=== PATIENT | female | born 1990 | race Caucasian/White ===

== ENCOUNTER 2017-06-20 13:30 | Emergency (ER) | payer MEDICAID ==
[~2017-06-20] VITALS: Ht 152.4 cm; Wt 48.6 kg
[2017-06-20 13:56] VITALS: BP 140/70
--- NOTE | 2017-06-20 14:03 | NUR ---
PT AMBULATES TO OF4, DR BENITEZ NOTIFIED
--- NOTE | 2017-06-20 14:12 | NUR ---
PATIENT PRESENTS TO ED WITH ELVIS HANDS SWELLING, STIFFNESS, REDNESS X 1 MONTH . PT STATES . DENIES N/V/D; SKIN IS PINK/WARM/DRY; AAOX4 WITH EVEN AND STEADY GAIT; LUNGS CLEAR BL; HR EVEN AND REGULAR; PT DENIES ANY FEVER, CP, SOB, OR COUGH AT THIS TIME; PATIENT STATES PAIN OF 09 AT THIS TIME; VSS; PATIENT POSITIONED FOR COMFORT; HOB ELEVATED; BEDRAILS UP X2; BED DOWN. ER MD MADE AWARE OF PT STATUS.
--- NOTE | 2017-06-20 14:19 | NUR ---
LAB COLLECTING BLOOD SAMPLE
[2017-06-20 14:27] LABS: BASOPHILS # (AUTO) 0.3 K/uL (0.00-0.22); EOSINOPHILS # (AUTO) 0.1 K/uL (0-0.4); HEMATOCRIT 38.3 % (36-48); HEMOGLOBIN 12.8 g/dL (12.0-16.0); LYMPHOCYTES # (AUTO) 1.9 K/uL (2.5-16.5); MEAN CORPUSCULAR HEMOGLOBIN 31 pg (27-31); MEAN CORPUSCULAR HGB CONC 33 g/dL (33-37); MEAN CORPUSCULAR VOLUME 91 fL (80-94); MONOCYTES # (AUTO) 0.5 K/uL (0.8-1.0); NEUTROPHILS # (AUTO) 2.6 K/uL (1.8-7.7); PLATELET COUNT (AUTO) 248 K/uL (140-450); RED CELL DISTRIBUTION WIDTH 12.3 % (11.6-13.7); WHITE BLOOD COUNT (AUTO) 5.4 K/uL (4.8-10.8)
[2017-06-20 14:35] LABS: APPEARANCE,URINE HAZY (CLEAR); BILIRUBIN,URINE NEGATIVE (NEGATIVE); BLOOD, URINE NEGATIVE (NEGATIVE); COLOR,URINE YELLOW (YELLOW); LEUKOCYTE ESTERASE ,URINE NEGATIVE (NEGATIVE); NITRITE, URINE POSITIVE (NEGATIVE); UGLUCOSE NEGATIVE (NEGATIVE)
[2017-06-20 14:40] LABS: ANION GAP 13.2 (8-16); CARBON DIOXIDE 23.4 mmol/L (21-32); CREATININE 0.9 mg/dL (0.6-1.3); POTASSIUM 3.6 mmol/L (3.5-5.1)
[2017-06-20 14:44] LABS: RBC,URINE NONE SEEN /HPF (0-5); WBC,URINE 0-5 (RARE) /HPF (0-5)
[2017-06-20 14:45] LABS: ALBUMIN 3.6 g/dL (3.4-5.0); TOTAL BILIRUBIN 0.4 mg/dL (0.0-1.0)
--- NOTE | 2017-06-20 15:04 | NUR ---
SITTING UPRIGHT IN CHAIR--CONTINUES TO WAIT FOR LAB RESULTS
--- NOTE | 2017-06-20 15:54 | NUR ---
dr. smith assessing patient in of
[2017-06-20] MEDS: CIPROFLOXACIN 250 MG TAB PO ONE (16:28)
[2017-06-20] MEDS: KETOROLAC 15 MG/ML VIAL IM ONE (16:28)
--- NOTE | 2017-06-20 17:05 | NUR ---
PENDING DC ORDER IN BUT NO DC PAPERWORK HAS BEEN COMPLETED OF YET--MD HORTON
[2017-06-20 17:44] VITALS: BP 119/73
== END 2017-06-20 17:43 | disposition home or self-care (01) ==
LOC: MED 13:30
DX: M65.4 Radial styloid tenosynovitis [de Quervain] (principal); N39.0 Urinary tract infection, site not specified
CPT/HCPCS: 36415; 80053; 81001; 81025; 85025; 87086; 96372; 99284; J1885

== ENCOUNTER 2019-05-16 12:01 | Emergency (ER) | payer SELFPAY ==
[~2019-05-16] VITALS: Ht 152.4 cm; Wt 55.8 kg
[2019-05-16 12:12] VITALS: BP 113/56
--- NOTE | 2019-05-16 12:15 | NUR ---
PT SENT TO ER LOBBY TO WAIT FOR AVAILABLE BED.
--- NOTE | 2019-05-16 12:32 | NUR ---
PATIENT AMBULATED TO BED 5.
--- NOTE | 2019-05-16 12:46 | NUR ---
PT PRESENTS TO THE ED WITH C/O L WRIST PAIN X 2 WEEKS. PT STATES THAT PAIN IS 7/10 AT THIS TIME AND THAT HER WRIST FEELS SORE. PT STATES THAT IT HURTS TO MOVE HER THUMB. PT REPORTS TAKING TYLENOL 500MG LAST NIGHT. PT STATES THAT SHE WAS DIAGNOSED 2 YEARS AGO WITH TENDONITIS AND SINCE SHE IS CARRYING HER BABY THE PAIN HAS BEGAN TO COME BACK. PTS SKIN IS PINK, WARM, AND DRY AND NO DEFORMITIES NOTED. PT PRESENTS WITH A CLEAR SPEECH AND IS CONVERSING APPROPRIATELY. PT POSITIONED FOR COMFORT. HOB ELEVATED. ER MD AWARE OF PT STATUS. LILI HX: TENDONITIS RX: DENIES
--- NOTE | 2019-05-16 12:54 | NUR ---
PLACED VELCRO COLLES ON LEFT WRIST OF PT
[2019-05-16 13:02] VITALS: BP 113/56
== END 2019-05-16 13:01 | disposition home or self-care (01) ==
LOC: MED 12:01
DX: M65.4 Radial styloid tenosynovitis [de Quervain] (principal)
CPT/HCPCS: 99283

== ENCOUNTER 2020-09-03 22:36 | Emergency (ER) | payer MEDICAID ==
[~2020-09-03] VITALS: Ht 152.4 cm; Wt 53.1 kg
[2020-09-03 22:42] VITALS: BP 110/71
--- NOTE | 2020-09-03 22:42 | NUR ---
to bed ambulatory
--- NOTE | 2020-09-03 22:55 | NUR ---
29 Y/O F BIB SELF FROM HOME, PATIENT PRESENTS TO ED WITH ABD AND NECK PAIN THAT STARTED 3 DAYS AGO 08/31/20. PT STATES NECK PAIN IS 9/10, DOES NOT RADIATE, QUALITY PRESSURE, ACCOMPANIED WITH NAUSEA AND VOMITING. PT STATED NO DIARRHEA, CONSTIPATION, BUT THE NAUSEA STARTED TODAY 1800, 6 EMESIS EPISODES. SKIN IS PINK/WARM/DRY; AAOX4 WITH EVEN AND STEADY GAIT; LUNGS CLEAR BL; HR EVEN AND REGULAR; PT DENIES ANY FEVER, CP, SOB, OR COUGH AT THIS TIME; VSS; PATIENT POSITIONED FOR COMFORT; HOB ELEVATED; BEDRAILS UP X2; BED DOWN. ER MD MADE AWARE OF PT STATUS. NKA. NO PMH. LMP: 08/26/20.
[2020-09-03] MEDS ORDERED: KETOROLAC 60 MG/2 ML VIAL IM ONE (23:00)
[2020-09-03] MEDS ORDERED: ONDANSETRON 4 MG TAB PO ONE (23:10)
--- NOTE | 2020-09-03 23:21 | NUR ---
URINE WAS GIVEN TO LAB FOR UA.
[2020-09-03 23:31] LABS: APPEARANCE,URINE CLEAR (CLEAR); BILIRUBIN,URINE NEGATIVE (NEGATIVE); BLOOD, URINE NEGATIVE (NEGATIVE); COLOR,URINE YELLOW (YELLOW); LEUKOCYTE ESTERASE ,URINE 1+ (NEGATIVE); NITRITE, URINE NEGATIVE (NEGATIVE); UGLUCOSE NEGATIVE (NEGATIVE)
[2020-09-03 23:54] LABS: RBC,URINE 0-5 /HPF (0-5)
[2020-09-03 23:55] LABS: URINE AMORPHOUS URATE 1+ /HPF (None Seen)
[2020-09-04] MEDS ORDERED: MORPHINE SULFATE 4 MG/ML SYR IVP ONE
[2020-09-04] MEDS ORDERED: ONDANSETRON 4 MG/2 ML VIAL IVP ONE
[2020-09-04] MEDS ORDERED: NACL 0.9% 1,000 ML IV ONE
[2020-09-04] MEDS ORDERED: cefTRIAXone 1,000 MG VIAL ONE (00:15)
[2020-09-04 00:32] LABS: BASOPHILS % (AUTO) 0.1 % (0.0-2.0); EOSINOPHILS % (AUTO) 0.1 % (0.0-4.0); HEMATOCRIT 40.1 % (36-48); HEMOGLOBIN 13.7 g/dL (12.0-16.0); LYMPHOCYTES # (AUTO) 0.6 K/uL (2.5-16.5); LYMPHOCYTES % (AUTO) 4.2 % (20.5-51.1); MEAN CORPUSCULAR HEMOGLOBIN 31 pg (27-31); MEAN CORPUSCULAR HGB CONC 34 g/dL (33-37); MEAN CORPUSCULAR VOLUME 89.5 fL (80-94); MONOCYTES # (AUTO) 0.5 K/uL (0.8-1.0); MONOCYTES % (AUTO) 3.5 % (1.7-9.3); NEUTROPHILS # (AUTO) 12.8 K/uL (1.8-7.7); NEUTROPHILS % (AUTO) 92.1 % (42.2-75.2); PLATELET COUNT (AUTO) 233 K/uL (140-450); RED BLOOD CELL COUNT(AUTO) 4.48 MIL/uL (4.20-5.40); WHITE BLOOD COUNT (AUTO) 13.9 K/uL (4.8-10.8)
[2020-09-04 00:39] LABS: CARBON DIOXIDE 23.8 mmol/L (21-32); CREATININE 0.9 mg/dL (0.6-1.3); POTASSIUM 3.8 mmol/L (3.5-5.1); TOTAL BILIRUBIN 0.4 mg/dL (0.0-1.0)
[2020-09-04] MEDS ORDERED: diphenhydrAMINE 50 MG/ML VIAL IVP ONE (00:55)
--- NOTE | 2020-09-04 00:57 | NUR ---
CHECKED ON MED REACTION FOR PT. PT HAS VISIBLE SWELLING AND REDNESS ON IV SITE. PT STATES SHE IS FEELING EXTREMELY ITCHY ON THE ARM. ERMD NOTIFIED. PT STILL WANTS TO CONTINUE ANTIBIOTIC AND GIVE BENADRYL.
[2020-09-04] MEDS ORDERED: ONDA4TAB PO (01:19)
[2020-09-04] MEDS ORDERED: NITR100C7 PO (01:19)
--- NOTE | 2020-09-04 01:30 | NUR ---
SWELLING HAS GONE DOWN, PT WAS ABLE TO FINISH ANTIBIOTIC. PT STATES SHE WILL BE HAVING SPOUSE COMING TO PICK HER UP FOR DISCHARGE. PT WAITING IN ROOM COMFORTABLY, IV REMOVED, WRIST BAND REMOVED, DISCHARGE PAPERWORK SIGNED, AFTERCARE INSTRUCTIONS GIVEN.
[2020-09-04 01:32] VITALS: BP 110/71
--- NOTE | 2020-09-04 01:32 | NUR ---
Patient discharged with v/s stable. Written and verbal after care instructions given and explained. Patient alert, oriented and verbalized understanding of instructions. Ambulatory with steady gait. All questions addressed prior to discharge. ID band removed. Patient advised to follow up with PMD. Rx of MACROBID, ZOFRAN given. Patient educated on indication of medication including possible reaction and side effects. Opportunity to ask questions provided and answered.
== END 2020-09-04 01:32 | disposition home or self-care (01) ==
LOC: MED 22:36
DX: N39.0 Urinary tract infection, site not specified (principal); Z88.1 Allergy status to other antibiotic agents
CPT/HCPCS: 36415; 80053; 81001; 81025; 85025; 87040; 87086; 96365; 96372; 96375; 99285; J0696; J1200; J1885; J2270; J2405; J7060; Q0162

== ENCOUNTER 2021-01-26 20:27 | Emergency (ER) | payer MEDICAID ==
[~2021-01-26] VITALS: Ht 152.4 cm; Wt 54.4 kg
[~2021-01-26 20:27] MED LIST: NITR100C7 PO; ONDA4TAB PO
[2021-01-26 20:40] VITALS: BP 125/88
--- NOTE | 2021-01-26 20:43 | NUR ---
TO LOBBY A/W BED AMBULATORY
--- NOTE | 2021-01-26 21:35 | NUR ---
AMBULATORY TO BED
--- NOTE | 2021-01-26 21:38 | NUR ---
30 Y/O C/O LOWER ABD PAIN, SINCE THURSDAY. RADIATING TO LOWER BACK. TENDER TO TOUCH. PT STATES 9/10 BURNING PAIN. MEDHX: DENIES ALLERGIES: CEFTRIAXONE
--- NOTE | 2021-01-26 21:56 | NUR ---
DR REAGAN AT BEDSIDE EXAMINING PT
[2021-01-26] MEDS ORDERED: KETOROLAC 30 MG/ML VIAL IM ONE (22:05)
--- NOTE | 2021-01-26 22:12 | NUR ---
LAB AT BEDSIDE
[2021-01-26 22:26] LABS: BASOPHILS % (AUTO) 0.4 % (0.0-2.0); EOSINOPHILS # (AUTO) 0.1 K/uL (0-0.4); EOSINOPHILS % (AUTO) 1.1 % (0.0-4.0); HEMATOCRIT 38.5 % (36-48); LYMPHOCYTES # (AUTO) 3.1 K/uL (2.5-16.5); LYMPHOCYTES % (AUTO) 40.1 % (20.5-51.1); MEAN CORPUSCULAR HEMOGLOBIN 31 pg (27-31); MEAN CORPUSCULAR HGB CONC 34 g/dL (33-37); MEAN CORPUSCULAR VOLUME 92.5 fL (80-94); MONOCYTES # (AUTO) 0.6 K/uL (0.8-1.0); MONOCYTES % (AUTO) 7.9 % (1.7-9.3); NEUTROPHILS # (AUTO) 3.9 K/uL (1.8-7.7); NEUTROPHILS % (AUTO) 50.5 % (42.2-75.2); PLATELET COUNT (AUTO) 253 K/uL (140-450); RED BLOOD CELL COUNT(AUTO) 4.16 MIL/uL (4.20-5.40); RED CELL DISTRIBUTION WIDTH 13.2 % (11.6-13.7); WHITE BLOOD COUNT (AUTO) 7.8 K/uL (4.8-10.8)
--- NOTE | 2021-01-26 22:29 | NUR ---
PT TAKEN TO CT SCAN VIA ESTEBAN
[2021-01-26 22:37] LABS: APPEARANCE,URINE CLOUDY (CLEAR); BILIRUBIN,URINE NEGATIVE (NEGATIVE); BLOOD, URINE NEGATIVE (NEGATIVE); COLOR,URINE YELLOW (YELLOW); LEUKOCYTE ESTERASE ,URINE 1+ (NEGATIVE); NITRITE, URINE NEGATIVE (NEGATIVE); UGLUCOSE NEGATIVE (NEGATIVE)
--- NOTE | 2021-01-26 22:40 | NUR ---
PT RETURNED FROM CT
[2021-01-26 22:46] LABS: ALBUMIN 3.8 g/dL (3.4-5.0); ANION GAP 12.6 (8-16); CARBON DIOXIDE 27.1 mmol/L (21-32); CREATININE 0.9 mg/dL (0.6-1.3); POTASSIUM 3.7 mmol/L (3.5-5.1); TOTAL BILIRUBIN 0.1 mg/dL (0.0-1.0)
[2021-01-26 22:55] LABS: RBC,URINE 0-5 /HPF (0-5); WBC,URINE 0-5 /HPF (0-5)
--- NOTE | 2021-01-26 23:00 | NUR ---
PT REPORTS 5/[address] REAGAN MADE AWARE
--- NOTE | 2021-01-26 23:29 | NUR ---
Pt report given to BONNIE DENA. Transfer of care at this time.
--- NOTE | 2021-01-26 23:30 | NUR ---
RECEIVED REPORT FROM DIANNE ENGLISH. ASSUMED CARE AT THIS TIME. PT REPORTS 6/[address] PAIN [address]OWER A[address] REAGAN MADE AWARE. VERBAL ORDER FOR MORPHINE 4MG IM RECEIVED AND CARRIED OUT.
[2021-01-26 23:35] VITALS: BP 128/72
[2021-01-26] MEDS ORDERED: MORPHINE SULFATE 4 MG/ML SYR IM ONE (23:40)
[2021-01-27] MEDS ORDERED: NITR100C7 PO (00:05)
[2021-01-27] MEDS ORDERED: ACET-8386 PO (00:05)
--- NOTE | 2021-01-27 00:15 | NUR ---
Patient discharged with v/s stable. Written and verbal after care instructions given and explained. Patient alert, oriented and verbalized understanding of instructions. Ambulatory with steady gait. All questions addressed prior to discharge. ID band removed. Patient advised to follow up with PMD. Rx of MACROBID AND NORCO given. Patient educated on indication of medication including possible reaction and side effects. Opportunity to ask questions provided and answered.
== END 2021-01-27 00:15 | disposition home or self-care (01) ==
LOC: MED 20:27
DX: N39.0 Urinary tract infection, site not specified (principal); Z79.899 Other long term (current) drug therapy
CPT/HCPCS: 36415; 74176; 80053; 81001; 81025; 83690; 85025; 87086; 96372; 99284; J1885; J2270

== ENCOUNTER 2021-10-29 09:53 | Emergency (ER) | payer MEDICAID ==
[~2021-10-29] VITALS: Ht 152.4 cm; Wt 56.2 kg
[~2021-10-29 09:53] MED LIST changes: +ACET-8386 PO
[2021-10-29 10:04] VITALS: BP 115/60
--- NOTE | 2021-10-29 10:07 | NUR ---
PT AMB TO BED 12.
--- NOTE | 2021-10-29 10:21 | NUR ---
DR YOO AT [facility] ASSESSING THE PT
[2021-10-29] MEDS ORDERED: LIDOCAINE MPF 1% 10 MG/ML VIAL INJ ONE (10:30)
--- NOTE | 2021-10-29 10:31 | NUR ---
C/O LOWER BACK PAIN X 1 MONTH. DENIES TRAUMA OR DYSURIA. PT STATES PAIN IS 10/10. SHE CAN BARELY MOVE AND IS UNCOMFORTABLE IN ANY POSITION. PT CURRENTLY STANDING IN ROOM IN DISCOMFORT. PT STATED HAD PROBLEM WITH SCIATIC PAIN BEFORE. PTS DAUGHTER IN ROOM WITH HER. NO PMH ALLERGIES: CEFTRIAXONE
[2021-10-29] MEDS ORDERED: ACET-8386 PO (11:37)
--- NOTE | 2021-10-29 11:44 | NUR ---
Patient discharged with v/s stable. Written and verbal after care instructions given FOR BACK PAIN AND BACK EXERCISES and explained. Patient alert, oriented and verbalized understanding of instructions. Ambulatory with steady gait. All questions addressed prior to discharge. ID band removed. Patient advised to follow up with PMD. Rx of NORCO given. Patient educated on indication of medication including possible reaction and side effects. Opportunity to ask questions provided and answered.
== END 2021-10-29 11:44 | disposition home or self-care (01) ==
LOC: MED 09:53
DX: M54.6 Pain in thoracic spine (principal); M54.50 Low back pain, unspecified; M53.3 Sacrococcygeal disorders, not elsewhere classified; Z90.49 Acquired absence of other specified parts of digestive tract; Z79.899 Other long term (current) drug therapy; Z79.891 Long term (current) use of opiate analgesic; Z79.2 Long term (current) use of antibiotics; Z88.1 Allergy status to other antibiotic agents
CPT/HCPCS: 20552; 81002; 81025; 99284; J2001

== ENCOUNTER 2022-04-04 09:08 | Emergency (ER) | payer MEDICAID ==
[~2022-04-04] VITALS: Ht 152.4 cm; Wt 58.5 kg
[2022-04-04 09:19] VITALS: BP 125/72
--- NOTE | 2022-04-04 09:35 | NUR ---
31 y/o female bib self with c/o bilateral inner thigh rash x today. Patient denies any fever, chills or SOB. Denies any new detergents, soaps or lotions. Denies any other family members having rash. Patient states she "ate new food yesterday for dinner." Medical History: Denies ALLERGY: CEFTRIAXONE
[2022-04-04] MEDS ORDERED: predniSONE 20 MG TAB PO ONE (10:15)
[2022-04-04] MEDS ORDERED: FAMOTIDINE 20 MG TAB PO ONE (10:15)
[2022-04-04] MEDS ORDERED: DIPH25TA53 PO (10:25)
[2022-04-04] MEDS ORDERED: FAMO-90 PO (10:25)
[2022-04-04] MEDS ORDERED: PRED20TA5 PO (10:25)
[2022-04-04 10:50] VITALS: BP 96/63
--- NOTE | 2022-04-04 10:50 | NUR ---
Patient discharged with v/s stable. Written and verbal after care instructions given. Patient alert, oriented and verbalized understanding of instructions. Ambulatory with steady gait. All questions addressed prior to discharge. ID band removed. Patient advised to follow up with PMD. Rx of Benadryl, Pepcid and Deltasone given. Opportunity to ask questions provided and answered.
--- NOTE | 2022-04-04 10:51 | NUR ---
The patient's care was reviewed and supervised by Layla Blackwood RN.
== END 2022-04-04 10:50 | disposition home or self-care (01) ==
LOC: MED 09:08
DX: L50.9 Urticaria, unspecified (principal); Z88.1 Allergy status to other antibiotic agents
CPT/HCPCS: 99283; J7512

== ENCOUNTER 2022-05-16 22:04 | Emergency (ER) | payer MEDICAID ==
[~2022-05-16] VITALS: Ht 152.4 cm; Wt 54.9 kg
[~2022-05-16 22:04] MED LIST changes: +DIPH25TA53 PO; +FAMO-90 PO; +PRED20TA5 PO
[2022-05-16 22:45] VITALS: BP 122/65
--- NOTE | 2022-05-16 22:48 | NUR ---
TO LOBBY A/W BED AMBULATORY
--- NOTE | 2022-05-17 00:03 | NUR ---
PT TO BED #2
--- NOTE | 2022-05-17 00:15 | NUR ---
H/A, DIFF OF BREATHING, SORETHROAT, BODYACHES FOR 4DAYS
[2022-05-17] MEDS ORDERED: DEXAMETHASONE 10 MG/ML VIAL IVP ONE (00:40)
[2022-05-17] MEDS ORDERED: diphenhydrAMINE 50 MG/ML VIAL IVP ONE (00:40)
[2022-05-17] MEDS ORDERED: KETOROLAC 15 MG/ML VIAL IVP ONE (00:40)
[2022-05-17] MEDS ORDERED: METOCLOPRAMIDE 10 MG/2 ML INJ VIAL IVP ONE (00:40)
[2022-05-17] MEDS ORDERED: guaiFENesin 20 MG/ML UDC PO ONE (00:40)
[2022-05-17] MEDS ORDERED: NACL 0.9% 1,000 ML IV ONE (00:40)
[2022-05-17] MEDS ORDERED: guaiFENesin DM 200/20 MG-10 ML 10 ML UDC ONE (01:13)
[2022-05-17 01:44] LABS: BASOPHILS % (AUTO) 0.3 % (0.0-2.0); EOSINOPHILS # (AUTO) 0.1 K/uL (0-0.4); EOSINOPHILS % (AUTO) 0.6 % (0.0-4.0); HEMOGLOBIN 12.6 g/dL (12.0-16.0); LYMPHOCYTES # (AUTO) 1.2 K/uL (2.5-16.5); LYMPHOCYTES % (AUTO) 14.5 % (20.5-51.1); MEAN CORPUSCULAR HEMOGLOBIN 31 pg (27-31); MEAN CORPUSCULAR HGB CONC 34 g/dL (33-37); MEAN CORPUSCULAR VOLUME 89.8 fL (80-94); MONOCYTES # (AUTO) 0.9 K/uL (0.8-1.0); MONOCYTES % (AUTO) 10.7 % (1.7-9.3); NEUTROPHILS # (AUTO) 6.3 K/uL (1.8-7.7); NEUTROPHILS % (AUTO) 73.9 % (42.2-75.2); PLATELET COUNT (AUTO) 211 K/uL (140-450); RED BLOOD CELL COUNT(AUTO) 4.12 MIL/uL (4.20-5.40); RED CELL DISTRIBUTION WIDTH 13.3 % (11.6-13.7); WHITE BLOOD COUNT (AUTO) 8.5 K/uL (4.8-10.8)
[2022-05-17 01:45] LABS: ALBUMIN 3.1 g/dL (3.4-5.0); ANION GAP 13.1 (8-16); CREATININE 0.7 mg/dL (0.6-1.3); POTASSIUM 3.1 mmol/L (3.5-5.1); TOTAL BILIRUBIN 0.3 mg/dL (0.0-1.0)
[2022-05-17] MEDS ORDERED: POTASSIUM CHLORIDE 10 MEQ TABER PO ONE (02:05)
[2022-05-17] MEDS ORDERED: IBUP-2213 PO (02:16)
[2022-05-17] MEDS ORDERED: ACET-10509 PO (02:16)
[2022-05-17] MEDS ORDERED: TAM75 PO (02:16)
[2022-05-17] MEDS ORDERED: PROM118S5 PO (02:16)
[2022-05-17] MEDS ORDERED: [UNRECOGNIZED DRUG - CODE] PO (02:16)
[2022-05-17 03:00] VITALS: BP 122/65
--- NOTE | 2022-05-17 03:00 | NUR ---
Patient discharged with v/s stable. Written and verbal after care instructions given and explained. Patient verbalized understanding. Ambulatory with steady gait. All questions addressed prior to discharge. Advised to follow up with PMD.
== END 2022-05-17 03:00 | disposition home or self-care (01) ==
LOC: MED 22:04
DX: J10.1 Influenza due to other identified influenza virus with other respiratory manifestations (principal); Z20.822 Contact with and (suspected) exposure to COVID-19; E87.6 Hypokalemia; Z88.1 Allergy status to other antibiotic agents; Z79.899 Other long term (current) drug therapy
CPT/HCPCS: 36415; 71045; 80053; 83605; 85025; 87040; 87426; 87804; 96361; 96374; 96375; 99284; J1100; J1200; J1885; J2765; J7030; Q0092

== ENCOUNTER 2022-10-25 01:10 | Emergency (ER) | payer MEDICAID ==
[~2022-10-25] VITALS: Ht 152.4 cm; Wt 59.4 kg
[~2022-10-25 01:10] MED LIST changes: +ACET-10509 PO; -ACET-8386 PO; +ACET-8905 PO; +IBUP-2213 PO; +PROM118S5 PO; +TAM75 PO; +[UNRECOGNIZED DRUG - CODE] PO
[2022-10-25 01:25] VITALS: BP 135/91
--- NOTE | 2022-10-25 01:29 | NUR ---
PT TO BED 7 WITH SON
[2022-10-25] MEDS ORDERED: KETOROLAC 60 MG/2 ML VIAL IM ONE (01:30)
--- NOTE | 2022-10-25 01:43 | NUR ---
ASSUMED CARE C/O LOWER BACK PAIN RAD TO LLE, NO KNOWN TRAUMA
--- NOTE | 2022-10-25 01:49 | NUR ---
PAIN MEDS GIVEN ORDERED
[2022-10-25] MEDS ORDERED: NAPR-54 PO (02:26)
[2022-10-25 02:32] VITALS: BP 135/91
== END 2022-10-25 02:32 | disposition home or self-care (01) ==
LOC: MED 01:10
DX: M54.32 Sciatica, left side (principal); Z88.8 Allergy status to other drugs, medicaments and biological substances; Z79.899 Other long term (current) drug therapy
CPT/HCPCS: 96372; 99283; J1885

== ENCOUNTER 2022-12-01 14:47 | Emergency (ER) | payer MEDICAID ==
[~2022-12-01] VITALS: Ht 152.4 cm; Wt 60.3 kg
[~2022-12-01 14:47] MED LIST changes: +NAPR-54 PO
[2022-12-01 14:51] VITALS: BP 131/84
[2022-12-01] MEDS ORDERED: KETOROLAC 30 MG/ML VIAL IM ONE (15:15)
[2022-12-01] MEDS ORDERED: NAPR-1704 PO (15:18)
[2022-12-01] MEDS ORDERED: PRED20TA5 PO (15:18)
[2022-12-01 15:56] VITALS: BP 131/84
--- NOTE | 2022-12-01 15:59 | NUR ---
Patient discharged with v/s stable. Written and verbal after care instructions given and explained. Patient alert, oriented and verbalized understanding of instructions. Ambulatory with steady gait. All questions addressed prior to discharge. ID band removed. Patient advised to follow up with PMD. Rx of NAPROSYN, DELTASONE given. Patient educated on indication of medication including possible reaction and side effects. Opportunity to ask questions provided and answered.
== END 2022-12-01 15:56 | disposition home or self-care (01) ==
LOC: MED 14:47
DX: G56.02 Carpal tunnel syndrome, left upper limb (principal); Z88.1 Allergy status to other antibiotic agents; Z79.899 Other long term (current) drug therapy; Z98.890 Other specified postprocedural states
CPT/HCPCS: 29125; 96372; 99283; J1885

== ENCOUNTER 2023-08-03 13:15 | Emergency (ER) | payer MEDICAID ==
[~2023-08-03] VITALS: Ht 152.4 cm; Wt 59.9 kg
[~2023-08-03 13:15] MED LIST changes: +NAPR-1704 PO
[2023-08-03 13:23] VITALS: BP 140/86; PULSE 79; RESP 16; TEMP 97.7; O2SAT 99
[2023-08-03] MEDS ORDERED: ACETAMINOPHEN EXTRA STRENGTH 500 MG TAB PO ONE (13:50)
[2023-08-03] MEDS ORDERED: KETOROLAC 30 MG/ML VIAL IVP ONE (13:50)
[2023-08-03] MEDS ORDERED: KETOROLAC 60 MG/2 ML VIAL IM ONE (14:55)
[2023-08-03] MEDS ORDERED: KETOROLAC 30 MG/ML VIAL IM ONE (14:55)
[2023-08-03] MEDS ORDERED: MORPHINE SULFATE 4 MG/ML SYR IM ONE (16:25)
[2023-08-03] MEDS ORDERED: PRED20TA5 PO (17:47)
[2023-08-03] MEDS ORDERED: IBUP-2213 PO (17:47)
[2023-08-03] MEDS ORDERED: ACET-8905 PO (17:47)
[2023-08-03 18:24] VITALS: BP 140/86; PULSE 79; RESP 16; TEMP 97.7; O2SAT 99
== END 2023-08-03 18:24 | disposition home or self-care (01) ==
LOC: MED 13:15
DX: G51.0 Bell's palsy (principal); Z79.899 Other long term (current) drug therapy; Z79.1 Long term (current) use of non-steroidal anti-inflammatories (NSAID); Z88.1 Allergy status to other antibiotic agents
CPT/HCPCS: 70450; 71045; 82948; 93005; 96372; 99285; J1885; J2270

== ENCOUNTER 2024-01-14 15:04 | Emergency (ER) | payer MEDICAID ==
[~2024-01-14] VITALS: Ht 152.4 cm; Wt 59.4 kg
[~2024-01-14 15:04] MED LIST changes: +NAPR-337 PO; -NAPR-54 PO
[2024-01-14 15:19] VITALS: BP 110/73; PULSE 84; RESP 18; TEMP 97.3; O2SAT 98
[2024-01-14] MEDS: LIDOCAINE 5% 1 EA PATCH TP ONE (16:37)
[2024-01-14] MEDS ORDERED: NAPR-337 PO (16:38)
[2024-01-14] MEDS ORDERED: NITR100C7 PO (16:38)
[2024-01-14] MEDS ORDERED: DICL20GE TP (16:38)
[2024-01-14] MEDS: KETOROLAC 30 MG/ML VIAL IM ONE (16:41)
== END 2024-01-14 16:47 | disposition home or self-care (01) ==
LOC: MED 15:04
DX: N39.0 Urinary tract infection, site not specified (principal); M54.50 Low back pain, unspecified; Z98.890 Other specified postprocedural states; Z79.899 Other long term (current) drug therapy; Z88.1 Allergy status to other antibiotic agents
CPT/HCPCS: 81002; 81025; 96372; 99283; J1885